=== PATIENT | female | born 1985 | race Caucasian/White ===

== ENCOUNTER 2021-01-02 10:33 | Inpatient (IN) | payer OTHER ==
[~2021-01-02] VITALS: Ht 157.5 cm; Wt 63.5 kg
[~2021-01-02 10:33] MED LIST: ADVIL PM CAPLET1 TAB; CEFTIN250 MG PO; KETO10TA2 PO
== END 2021-01-14 17:13 | disposition home or self-care (01) | DRG 750 ==
LOC: ER 10:33 → SEC-K 19:21 → OB/GYN 19:21
PROVIDERS: ADMIT Obstetrics & Gynecology; ATTEND Obstetrics & Gynecology
PROC: BU4CZZZ Ultrasonography of Uterus and Ovaries (ICD-10-PCS; 2021-01-02)
PROC: BW21ZZZ Computerized Tomography (CT Scan) of Abdomen and Pelvis (ICD-10-PCS; 2021-01-02)
PROC: 0DNW4ZZ Release Peritoneum, Percutaneous Endoscopic Approach (ICD-10-PCS; principal; 2021-01-07 10:30)
PROC: 0W9J30Z Drainage of Pelvic Cavity with Drainage Device, Percutaneous Approach (ICD-10-PCS; 2021-01-08)
PROC: 0WPJ30Z Removal of Drainage Device from Pelvic Cavity, Percutaneous Approach (ICD-10-PCS; 2021-01-12)
DX: N73.8 Other specified female pelvic inflammatory diseases (principal); N73.6 Female pelvic peritoneal adhesions (postinfective); R10.2 Pelvic and perineal pain; Z20.822 Contact with and (suspected) exposure to COVID-19

== ENCOUNTER 2022-03-13 20:48 | Emergency (ER) | payer OTHER ==
[~2022-03-13] VITALS: Ht 157.5 cm; Wt 68.0 kg
[2022-03-13] MEDS ORDERED: ADVIL (21:44)
[2022-03-14] MEDS ORDERED: CEPHALEXIN500 MG PO (07:10)
[2022-03-14] MEDS ORDERED: KETO10TA2 PO (07:10)
== END 2022-03-14 07:35 ==
LOC: ER 20:48
DX: R10.2 Pelvic and perineal pain (principal); N83.209 Unspecified ovarian cyst, unspecified side

== ENCOUNTER 2022-04-18 08:35 | Outpatient (CLI) | payer OTHER ==
[~2022-04-18 08:35] MED LIST changes: +ADVIL; +CEPHALEXIN500 MG PO
== END 2022-04-18 08:36 | disposition home or self-care (01) ==
LOC: LAB 08:35
PROVIDERS: ATTEND Obstetrics & Gynecology
DX: E03.9 Hypothyroidism, unspecified (principal); N39.0 Urinary tract infection, site not specified

== ENCOUNTER 2022-04-18 09:30 | Outpatient (CLI) | payer OTHER | END 2022-04-18 09:43 | disposition home or self-care (01) | LOC: TOM 09:30 | PROVIDERS: ATTEND Surgery | DX: R10.2 Pelvic and perineal pain (principal) ==

== ENCOUNTER 2023-10-19 05:37 | Day surgery (SDC) | payer OTHER ==
[2023-10-08 09:31] LABS: HEMATOCRIT 38.3 % (36.0-45.00); HEMOGLOBIN 13.2 g/dL (12.0-15.00); MEAN CELL VOLUME 84.4 fL (80.00-100.00); MEAN CORPUSCULAR HEMOGLOBIN 29.1 pg (27.00-32.0); MEAN CORPUSCULAR HGB CONC 34.5 g/dl (32.0-36.0); PLATELET COUNT 249 K/uL (150-450); RED BLOOD COUNT 4.53 M/uL (4.00-6.00); RED CELL DISTRIBUTION WIDTH 13.2 % (11.5-14.5)
[2023-10-08 09:40] LABS: PH,URINE 7.5 (5.0-8.0); URINE APPEARANCE Clear; URINE BILIRRUBIN Negative (NEGATIVE); URINE BLOOD Negative; URINE COLOR Yellow; URINE GLUCOSE Negative (NEGATIVE); URINE LEUKOCYTE Negative; URINE NITRATE Negative; URINE PROTEIN Negative (NEGATIVE); URINE UROBILINOGEN 0.2 E.U./dl
[2023-10-08 09:42] LABS: URINE BACTERIA 500.1 uL (0.0-1933); URINE EPITHELIAL CELLS 15.7 uL (0.0-38.8); URINE RBC 14.8 uL (0.0-20.8); URINE WBC 8.1 uL (0.0-23.2)
[2023-10-08 09:52] LABS: ALBUMIN 3.7 gm/dL (3.4-5.0); BILIRUBIN TOTAL 1.16 mg/dL (0.3-1.2); CALCIUM 9.3 mg/dL (8.5-10.1); CREATININE SERUM 0.82 mg/dL (0.55-1.02); GFR 77.61; GLOBULINA 3.4 G/DL (2.4-3.5); POTASSIUM 4.1 mEq/L (3.5-5.1); TOTAL PROTEIN 7.1 gm/dL (6.4-8.2)
[2023-10-08 09:53] LABS: INR 0.95; PARTIAL THROMBOPLASTIN TIME 29.6 SECONDS (22.0-34.0)
[2023-10-19] MEDS ORDERED: POVIDONE-IODINE 118 ML BOTT TOP ONE ×3 (13:51→15:45)
== END 2023-10-19 21:40 | disposition home or self-care (01) ==
LOC: CIR.AMB 05:37
PROVIDERS: ATTEND Obstetrics & Gynecology
DX: N93.8 Other specified abnormal uterine and vaginal bleeding (principal); N84.0 Polyp of corpus uteri